=== PATIENT | female | born 1985 | race African-American/Black ===

== ENCOUNTER → 2017-03-23 | Outpatient (CLI) | payer OTHER ==
[~2017-03-23] MED LIST: BENTYL10 MG PO; HYDROCHLOROTH12.5 M1 PO; HYDROCHLOROTHIA25 MG PO; OXYCODONE-APAP1 CA2 PO; VALTREX PO; [UNRECOGNIZED DRUG - OTHER] PO
--- NOTE | ~2017-03-23 | MR18 ---
[facility] A Service of [facility] / [facility] RADIOLOGY TEXT RESULTS PATIENT: ANIKA STRONG LOCATION: [facility] : 84 UNIT #: [id number] AGE: [address]: Chente Mead MD SEX: F ORDER DR: [id number] [facility] [address] [place], [place] [address] [id number] O MR#: [id number] Acc #: [id number] NAME: ANIKA STRONG : 1985 SEX: F STUDY DATE/TIME: 03/23/2017 8:21 UNIT: [facility] ROOM: STUDY DESCRIPTION: MR Brain Wo Contrast Attending Physician: Chente Alvarado M.D. Referring Physician: Chente Alvarado M.D. Ordering Physician: Chente Alvarado M.D. Primary Care Physician: Chente Alvarado M.D. MRI CENTER REPORT This report is preliminary unless electronic signature is present. EXAM Brain MRI. HISTORY Intermittent dizziness for the past 8 years. Occasional right-sided weakness. TECHNIQUE Multiplanar imaging of the brain was performed and compared to a previous examination from 02/10/2012. FINDINGS Ventricular size is normal. No white matter signal abnormalities are seen. There is no evidence of mass lesion, hemorrhage, or edema. The temporal lobes are symmetric. Extraaxial structures are unremarkable. Since the previous scan, no changes are noted. IMPRESSION Normal. Dictated by... Tam Draper M.D. THIS IS AN ELECTRONICALLY VERIFIED REPORT Tam Draper M.D. at 03/24/2017 3:52 PM RLF/win TD: 03/24/2017 09:40 JOB #: [id number] MRI CENTER REPORT [facility] A Service of [facility] & [facility] RADIOLOGY TEXT RESULTS PATIENT: ANIKA STRONG LOCATION: [facility] : 84 UNIT #: [id number] AGE: [address]: Chente Mead MD SEX: F ORDER DR: Page 1 of 1 COPY
== END | disposition home or self-care (01) ==
LOC: CMRI 07:57
DX: R42 Dizziness and giddiness (principal)
CPT/HCPCS: 70551